=== PATIENT | male | born 1960 | race Caucasian/White ===

== ENCOUNTER 2016-09-10 10:16 | Day surgery (SDC) | payer OTHER ==
[2016-09-10] MEDS ORDERED: LR 1,000 ML IV ONE (10:25)
[2016-09-10] MEDS ORDERED: LIDOCAINE 1% 2 ML INJ ID PRN (10:25)
[2016-09-10 10:34] VITALS: PULSE 73
[2016-09-10] MEDS ORDERED: HYDROmorphONE/DILAUDID 2 MG TAB PO ONE ×2 (11:00→14:18)
--- NOTE | 2016-09-10 11:03 | PDANEPAE ---
ANE History of Present Illness patient presents for colonoscopy ANE Past Medical History - Cardiovascular History Hx Hypertension: Yes Hx Arrhythmias: No Hx Chest Pain: No Hx Coronary Artery / Peripheral Vascular Disease: No Hx CHF / Valvular Disease: No Hx Palpitations: No - Pulmonary History Hx COPD: No Hx Asthma/Reactive Airway Disease: Yes Hx Recent Upper Respiratory Infection: No Hx Oxygen in Use at Home: No Hx Sleep Apnea: Yes Sleep Apnea Screening Result - Last Documented: Positive Pulmonary History Comment: ALLERGY INDUCED -NO INHALERS - Neurologic History Hx Cerebrovascular Accident: No Hx Seizures: No Hx Dementia: No - Endocrine History Hx Diabetes: No - Renal History Hx Renal Disorders: No - Liver History Hx Hepatic Disorders: No - Neurological & Psychiatric Hx Hx Neurological and Psychiatric Disorders: No - Cancer History Hx Cancer: Yes Cancer History Comment: SKIN CA REMOVED. TUMOR R SHOULDER - Congenital Disorder History Hx Congenital Disorders: No - GI History Hx Gastrointestinal Disorders: No Gastrointestinal History Comment: CONSTIPATION - Other Health History Other Health History: [place] IN PAST - Chronic Pain History Chronic Pain: Yes (BACK PAIN & L LEG) - Surgical History Prior Surgeries: TONSILLECTOMY. SKULL FX. VASECTOMY. ANKLE SURG. SPINAL STEROID INJS ANE Review of Systems - Exercise capacity Exercise capacity: >=4 METS METS (RN): 4 METS ANE Patient History - Allergies Allergies/Adverse Reactions: acetaminophen [From Vicodin] Allergy (Verified 08/12/16 15:04) GI UPSET hydrocodone [From Vicodin] Allergy (Verified 08/12/16 15:04) GI UPSET - Home Medications Home medications: home medication list seen and reviewed Home Medications: Dilaudid 08/12/16 [Last Taken 09/10/16 00:00] Escitalopram Oxalate 08/12/16 [Last Taken 09/02/16] Morphine Sulfate 08/12/16 [Last Taken 09/09/16] - NPO status NPO Status: no food or drink >8 hours NPO Since - Liquids (Date): 09/10/16 NPO Since - Liquids (Time): 02:00 NPO Since - Solids (Date): 09/09/16 NPO Since - Solids (Time): 09:00 - Anes Hx Anes Hx: no prior problems - Smoking Hx Smoking Status: Former smoker - Family Anes Hx Family Hx Anesthesia Complications: ADOPTED ANE Labs/Vital Signs - Vital Signs Blood Pressure: 180/88 Heart Rate: 73 Respiratory Rate: 16 O2 Sat (%): 96 Height: 177.8 cm Weight: 102.058 kg ANE Physical Exam - Airway Neck exam: FROM Mallampati Score: Class 2 Mouth exam: normal dental/mouth exam - Pulmonary Pulmonary: no respiratory distress - Cardiovascular Cardiovascular: regular rate and rhythym - ASA Status ASA Status: II ANE Anesthesia Plan Anesthesia Plan: GA with mask (RBA discussed)
[2016-09-10] MEDS ORDERED: HYDROmorphONE/DILAUDID 2 MG TAB ONE ×2 (11:07→14:21)
[2016-09-10] MEDS ORDERED: ONDANSETRON 4 MG/2 ML VIAL IVP PRN (11:33)
[2016-09-10] MEDS ORDERED: NALOXONE HCL 0.4 MG/ML INJ IVP PRN (11:33)
[2016-09-10] MEDS ORDERED: LIDOCAINE 0.5% 50 ML SDV ONE (11:35)
[2016-09-10] MEDS ORDERED: PROPOFOL/EMULSION 500 MG/50 ML BOTTLE IV ONE (11:35)
[2016-09-10] MEDS ORDERED: METOPROLOL TARTRATE 5 MG/5 ML INJ ONE (12:17)
--- NOTE | 2016-09-10 12:34 | PDGENHP ---
History & Physical Chief Complaint: Screening colon cancer Relevant Physical Exam: GEN: NAD. Cardiac: RRR. Lungs: CTA B. Abd: Soft, nd
--- NOTE | 2016-09-10 12:35 | POSTOPPROG ---
Post Op Note Date of Operation: 09/10/16 Surgeon: Caleb Christian Pre-op Diagnosis: screen colon cancer Post-op Diagnosis: same Indication: colon polyps Procedure: colonoscopy with snare, colonoscopy with biopsy Findings: rectal polyps s/p removal Inf/Abcess present in the surg proc area at time of surgery?: No
[2016-09-10] MEDS: fentaNYL 100 MCG/2 ML INJ IVP PRN ×4 (12:51→13:25)
[2016-09-10] MEDS ORDERED: fentaNYL 100 MCG/2 ML INJ ONE ×2 (12:51→13:16)
[2016-09-10] MEDS ORDERED: LABETALOL HCL 5 MG/ML 20 ML MDV ONE (13:11)
[2016-09-10] MEDS: LABETALOL HCL 5 MG/ML 20 ML MDV IVP PRN ×3 (13:13→13:42)
[2016-09-10] MEDS ORDERED: ONDANSETRON 4 MG/2 ML VIAL ONE (13:18)
[2016-09-10 14:26] VITALS: BP 145/99; RESP 21; O2SAT 93
--- NOTE | 2016-09-10 14:42 | GPN ---
[f rep st] PROCEDURE NOTE DATE OF PROCEDURE: 09/10/2016 PREPROCEDURE DIAGNOSIS: Screening for colon cancer. POSTPROCEDURE DIAGNOSIS: 1. Grade 1 internal hemorrhoids. 2. Mild diverticulosis on the left side. 3. An 8 mm rectal polyp, status post removal with hot snare. 4. A 2 mm rectal polyp, status post removal with cold biopsy forceps. PROCEDURES: 1. Colonoscopy with snare. 2. Colonoscopy with biopsies. MEDICATIONS: Monitored anesthesia care. INDICATIONS: The patient is a 56-year-old gentleman here for colon cancer screening. He is adopted , so he does not know his family history. The risks and benefits of the procedure were discussed wi th the patient. Consent obtained. Risks include, but not limited to, bleeding, perforation, sedati on. The patient is ASA class 2. DESCRIPTION OF PROCEDURE: The adult colonoscope was advanced into the terminal ileum, which appears normal. The ileocecal valve, appendiceal orifice, cecum. Ascending colon, hepatic flexure, transve rse colon, splenic flexure, descending colon appeared normal. He had mild left-sided diverticulosis . In the rectum, he has an 8 mm semipedunculated polyp, which was removed using hot snare polypecto my technique. A 2 mm rectal polyp was also removed, using cold biopsy forceps. Retroflexed views s how grade 1 internal hemorrhoids. IMPRESSION: 1. Mild left-sided diverticulosis. 2. Grade 1 internal hemorrhoids. 3. Two rectal polyps, status post removal. RECOMMENDATIONS: 1. Advance diet as tolerated. 2. Discharged to home with escort. 3. Follow up the final biopsy results. Results available within 10 days. 4. Repeat colonoscopy in 5 years, given unknown family history. Thank you for allowing me to participate in the care of this patient. Please do not hesitate to pepe loly with questions. /[id number]/MODL
[2016-09-10 16:01] VITALS: TEMP 98.2
--- NOTE | 2016-09-10 17:10 | POSTANESTH ---
Post Anesthetic Evaluation Cardiovascular Status: Normal, Stable, Tx Hyper/Hypo-tension (Treating hypertension in PACU. Otherwise well.) Respiratory Status: Normal, Stable Level of Consciousness/Mental Status: Can Participate in Eval Pain Control: Adequate, Prn Tx Ordered Nausea/Vomiting Control: Adequate, Prn Tx Ordered Complications Possibly Related to Anesthesia: None Noted
== END 2016-09-10 15:50 | disposition home or self-care (01) ==
LOC: FSGY 10:16
PROVIDERS: ATTEND Internal Medicine Gastroenterology
PROC: 0DBE8ZX Excision of Large Intestine, Via Natural or Artificial Opening Endoscopic, Diagnostic (ICD-10-PCS; principal; 2016-09-10 11:30)
DX: K64.0 First degree hemorrhoids (principal); K62.1 Rectal polyp
CPT/HCPCS: J2405; J2704; J3010; J3490